=== PATIENT | male | born 1965 | race Caucasian/White ===

== ENCOUNTER 2018-10-01 13:37 | Inpatient (IN) | payer OTHER ==
[~2018-10-01] VITALS: Ht 172.7 cm; Wt 76.5 kg
[2018-10-01] VITALS (10 sets, daily range): BP systolic 97–145; BP diastolic 72–98; BMI 28.3
[2018-10-01] MEDS ORDERED: VENTOLIN HFA18 GM INH (13:54)
[2018-10-01] MEDS ORDERED: LUNESTA2 M1 PO (13:54)
[2018-10-01 16:25] LABS: BASOPHILS 0.4 % (0-2); EOSINOPHILS 0.1 % (0-7); HEMATOCRIT 50.8 % (42.0-54.0); HEMOGLOBIN 16.3 g/dL (13.5-17.5); IMMATURE GRANULOCYTES 0.4 % (0-5); LYMPHOCYTES 23.9 % (15-50); MCHC 32.1 g/dL (31.0-37.0); MCV 93.4 fL (80.0-100.0); MEAN PLATELET VOLUME 9.9 fL (7.4-10.4); MONOCYTES 15.9 % (2-11); NEUTROPHILS 59.3 % (40-80); PLATELET COUNT 230 10x3/uL (130-400); RBC 5.44 10x6/uL (4.20-6.10); RDW 13.6 % (11.5-14.5); WBC 7.4 10x3/uL (4.8-10.8)
[2018-10-01 16:39] LABS: ALBUMIN 3.4 g/dL (3.4-5.0); ALKALINE PHOSPHATASE 72 U/L (46-116); ALT (SGPT) 26 U/L (10-68); BILIRUBIN - TOTAL 0.33 mg/dL (0.2-1.3); CALC OSMOLALITY 274 mosm/kg (275-300); CALCIUM 9.1 mg/dL (8.5-10.1); CARBON DIOXIDE 36.4 mmol/L (21.0-32.0); CHLORIDE - SERUM 96 mmol/L (98-107); CREATININE - SERUM 0.9 mg/dL (0.6-1.3); GLUCOSE 88 mg/dL (74-106); POTASSIUM - SERUM 3.7 mmol/L (3.5-5.1); PROTEIN - SERUM 8.1 g/dL (6.4-8.2); SODIUM 139 mmol/L (136-145); UREA NITROGEN 7 mg/dL (7-18); eGFR NON AFRICAN AMERICAN > 90 mL/min (90-120)
[2018-10-02 04:15] VITALS: BP 138/79
[2018-10-02 06:58] LABS: CALCIUM 9.1 mg/dL (8.5-10.1); CARBON DIOXIDE 33.9 mmol/L (21.0-32.0); CHLORIDE - SERUM 98 mmol/L (98-107); SODIUM 141 mmol/L (136-145); eGFR NON AFRICAN AMERICAN 83 mL/min (90-120)
[2018-10-02 07:00] LABS: CALC OSMOLALITY 282 mosm/kg (275-300); GLUCOSE 150 mg/dL (74-106); UREA NITROGEN 11 mg/dL (7-18)
[2018-10-02 07:03] LABS: BASOPHILS 0.4 % (0-2); EOSINOPHILS 0 % (0-7); HEMATOCRIT 50.9 % (42.0-54.0); IMMATURE GRANULOCYTES 0.4 % (0-5); LYMPHOCYTES 27.7 % (15-50); MCH 29.9 pg (26.0-34.0); MCHC 31.4 g/dL (31.0-37.0); MONOCYTES 7.4 % (2-11); NEUTROPHILS 64.1 % (40-80); RBC 5.36 10x6/uL (4.20-6.10); RDW 13.6 % (11.5-14.5)
[2018-10-02 07:22] LABS: PLATELET COUNT 278 10x3/uL (130-400); WBC 2.8 10x3/uL (4.8-10.8)
[2018-10-02 08:11] VITALS: BP 127/82
[2018-10-02 12:00] VITALS: BP 130/90
[2018-10-02 16:00] VITALS: BP 122/87
[2018-10-02 21:47] VITALS: BP 136/79
[2018-10-03 06:48] VITALS: BP 119/74
[2018-10-03 07:08] LABS: BASOPHILS 0 % (0-2); EOSINOPHILS 0 % (0-7); HEMATOCRIT 44.2 % (42.0-54.0); HEMOGLOBIN 13.8 g/dL (13.5-17.5); IMMATURE GRANULOCYTES 0.4 % (0-5); LYMPHOCYTES 10.5 % (15-50); MCH 29.4 pg (26.0-34.0); MCHC 31.2 g/dL (31.0-37.0); MEAN PLATELET VOLUME 9.8 fL (7.4-10.4); MONOCYTES 4.9 % (2-11); NEUTROPHILS 84.2 % (40-80); PLATELET COUNT 266 10x3/uL (130-400); RDW 13.5 % (11.5-14.5)
[2018-10-03 07:09] LABS: WBC 5.7 10x3/uL (4.8-10.8)
[2018-10-03 07:27] LABS: ALBUMIN 2.8 g/dL (3.4-5.0); ALKALINE PHOSPHATASE 53 U/L (46-116); ALT (SGPT) 28 U/L (10-68); BILIRUBIN - TOTAL 0.21 mg/dL (0.2-1.3); CALC OSMOLALITY 278 mosm/kg (275-300); CALCIUM 8.8 mg/dL (8.5-10.1); CARBON DIOXIDE 35.3 mmol/L (21.0-32.0); CHLORIDE - SERUM 98 mmol/L (98-107); CREATININE - SERUM 0.9 mg/dL (0.6-1.3); GLUCOSE 141 mg/dL (74-106); POTASSIUM - SERUM 3.6 mmol/L (3.5-5.1); SODIUM 139 mmol/L (136-145); UREA NITROGEN 11 mg/dL (7-18); eGFR NON AFRICAN AMERICAN > 90 mL/min (90-120)
[2018-10-03 08:14] VITALS: BP 144/73
[2018-10-03 11:28] VITALS: BP 121/57
[2018-10-03 15:31] VITALS: BP 151/77
[2018-10-03 21:34] VITALS: BP 132/69
[2018-10-04 03:48] VITALS: BP 110/74
[2018-10-04 06:27] VITALS: BP 126/79
[2018-10-04 07:07] LABS: BASOPHILS 0 % (0-2); EOSINOPHILS 0 % (0-7); HEMATOCRIT 41.7 % (42.0-54.0); HEMOGLOBIN 13.2 g/dL (13.5-17.5); IMMATURE GRANULOCYTES 0.7 % (0-5); MCH 29.4 pg (26.0-34.0); MCHC 31.7 g/dL (31.0-37.0); MCV 92.9 fL (80.0-100.0); MEAN PLATELET VOLUME 9.6 fL (7.4-10.4); MONOCYTES 6.4 % (2-11); NEUTROPHILS 82.9 % (40-80); PLATELET COUNT 265 10x3/uL (130-400); RBC 4.49 10x6/uL (4.20-6.10); RDW 13.7 % (11.5-14.5)
[2018-10-04 07:09] LABS: WBC 7.4 10x3/uL (4.8-10.8)
[2018-10-04 07:22] LABS: ALBUMIN 2.7 g/dL (3.4-5.0); ALKALINE PHOSPHATASE 44 U/L (46-116); BILIRUBIN - TOTAL 0.21 mg/dL (0.2-1.3); CALC OSMOLALITY 280 mosm/kg (275-300); CALCIUM 8.9 mg/dL (8.5-10.1); CARBON DIOXIDE 35.1 mmol/L (21.0-32.0); CHLORIDE - SERUM 99 mmol/L (98-107); CREATININE - SERUM 0.9 mg/dL (0.6-1.3); GLUCOSE 131 mg/dL (74-106); PROTEIN - SERUM 6.4 g/dL (6.4-8.2); SODIUM 140 mmol/L (136-145); UREA NITROGEN 13 mg/dL (7-18); eGFR NON AFRICAN AMERICAN > 90 mL/min (90-120)
[2018-10-04 07:23] LABS: ALT (SGPT) 53 U/L (10-68)
[2018-10-04 07:38] VITALS: BP 130/74
[2018-10-04 11:23] VITALS: BP 126/73
[2018-10-04 15:30] VITALS: BP 113/80
[2018-10-04 20:00] VITALS: BP 111/82
[2018-10-05] VITALS: BP 129/81
[2018-10-05 04:00] VITALS: BP 119/86
[2018-10-05 05:30] LABS: BASOPHILS 0 % (0-2); EOSINOPHILS 0 % (0-7); HEMATOCRIT 45.4 % (42.0-54.0); HEMOGLOBIN 14.4 g/dL (13.5-17.5); IMMATURE GRANULOCYTES 0.7 % (0-5); LYMPHOCYTES 10.1 % (15-50); MCH 29.3 pg (26.0-34.0); MCHC 31.7 g/dL (31.0-37.0); MCV 92.3 fL (80.0-100.0); MEAN PLATELET VOLUME 9.7 fL (7.4-10.4); NEUTROPHILS 84.2 % (40-80); PLATELET COUNT 295 10x3/uL (130-400); RBC 4.92 10x6/uL (4.20-6.10); RDW 13.8 % (11.5-14.5); WBC 6.7 10x3/uL (4.8-10.8)
[2018-10-05 05:55] LABS: ALBUMIN 3.1 g/dL (3.4-5.0); ALKALINE PHOSPHATASE 49 U/L (46-116); BILIRUBIN - TOTAL 0.31 mg/dL (0.2-1.3); CALC OSMOLALITY 278 mosm/kg (275-300); CALCIUM 9.1 mg/dL (8.5-10.1); CARBON DIOXIDE 33.2 mmol/L (21.0-32.0); CHLORIDE - SERUM 98 mmol/L (98-107); CREATININE - SERUM 0.9 mg/dL (0.6-1.3); GLUCOSE 155 mg/dL (74-106); POTASSIUM - SERUM 3.9 mmol/L (3.5-5.1); PROTEIN - SERUM 7.1 g/dL (6.4-8.2); SODIUM 138 mmol/L (136-145); UREA NITROGEN 13 mg/dL (7-18); eGFR NON AFRICAN AMERICAN > 90 mL/min (90-120)
[2018-10-05 06:06] LABS: ALT (SGPT) 84 U/L (10-68)
[2018-10-05 08:13] VITALS: BP 125/83
--- NOTE | 2018-10-05 12:04 | MORECARE ---
CASE MANAGEMENT DISCHARGE SUMMARY PATIENT: ALBIN PERDUE UNIT: [id number] ADM DATE: 10/01/18 AGE: 53 : 65 SEX: M ROOM/BED: D.1211 AUTHOR: KRISTINA ASHER PHYSICIAN: REFERRING PHYSICIAN: ALBIN TIAN MD DATE OF SERVICE: 10/05/18 Discharge Plan Patient Name: ALBIN PERDUE [facility] [facility] 1965 Planned Disposition: Home Anticipated Discharge Date: 10/06/18 Discharge Date: Expected LOS: 5 Initial Reviewer: [email or web address] Initial Review Date: 10/01/2018 Generated: 10/05/18 1:04 pm DCPIA - Discharge Planning Initial Assessment Updated by [email or web address]: Amelie Nguyen on 10/05/18 12:01 pm * Is the patient Alert and Oriented? Yes * PCP [facility] IN [place] * Pharmacy [facility] * Preadmission Environment Home Alone * ADLs Independent * Equipment None * List name and contact numbers for known caregivers / representatives who currently or will assist patient after discharge: KRISTA SEALS, , * Community resources currently utilized None * Additional services required to return to the preadmission environment? Yes * Can the patient safely return to the preadmission environment? Yes * Has this patient been hospitalized within the prior 30 days at any hospital? No Patient Name: ALBIN PERDUE Page 24525 at 1204 All edits/amendments must be made on the electronic document DICTATION DATE: 10/05/18 1203 STENOGRAPHER SECRETARY: VINCE 10/05/18 1203 RPT#: [id number] DC DATE: STATUS: ADM IN [facility] [address] [place] [address] END OF REPORT
[2018-10-05 12:16] VITALS: BP 118/85
--- NOTE | 2018-10-05 12:18 | MORECARE ---
CASE MANAGEMENT DISCHARGE SUMMARY PATIENT: ALBIN PERDUE UNIT: [id number] ADM DATE: 10/01/18 AGE: 53 : 65 SEX: M ROOM/BED: D.1211 AUTHOR: LB,DOC PHYSICIAN: REFERRING PHYSICIAN: ALBIN TIAN MD DATE OF SERVICE: 10/05/18 Discharge Plan Patient Name: ALBIN PERDUE Facility: [facility]:[place] : 1965 Planned Disposition: Home Anticipated Discharge Date: 10/06/18 Discharge Date: Expected LOS: 5 Initial Reviewer: [email or web address] Initial Review Date: 10/01/2018 Generated: 10/05/18 1:18 pm Comments DCP- Discharge Planning Updated by [email or web address]: Amelie Nguyen on 10/05/18 11:[address] Patient Name: ALBIN PERDUE Admission Status: ER Accout number: [id number] Admission Date: 10-01-2018 : 1965 Admission Diagnosis:PNEUMONIA, UNSPECIFIED ORGANISM Attending: ALBIN TIAN Current LOS: 4 Anticipated DC Date: 10-06-2018 Planned Disposition: Home Primary Insurance: [employer] LIMITED BENEFITS Discharge Planning Comments: CM MET WITH PATIENT ABOUT DC PLANNING/NEEDS. PLANS TO DC HOME TOMORROW WITH NEBULIZERS. CM SPOKE WITH DR. MAYEN ABOUT NEBULIZERS AND HE STATED YES HE WILL DC PATIENT TO HOME WITH NEBS. CM CALLED [facility] AT [phone] AND FAXED CURRENT DOCUMENTS FOR NEBS TO [phone]. [facility] AT [facility] AWARE PATIENT TO BE DC'D TOMORROW. CM OR NURSE WILL NEED TO FAX DC ORDERS TO [facility] AT TIME OF DC IN ORDER FOR PATIENT TO GET NEBULIZER. CM TO FOLLOW AND ASSIST NEEDED WITH DC PLANNING/NEEDS. Supervisor [employer]: Amelie Nguyen DCPIA - Discharge Planning Initial Assessment Updated by [email or web address]: Amelie Nguyen on 10/05/18 12:01 pm * Is the patient Alert and Oriented? Yes * PCP [facility] IN [place] * Pharmacy [facility] * Preadmission Environment Home Alone * ADLs Independent * Equipment None * List name and contact numbers for known caregivers / representatives who currently or will assist patient after discharge: KRISTA SEALS SI, * Community resources currently utilized None * Additional services required to return to the preadmission environment? Yes * Can the patient safely return to the preadmission environment? Yes * Has this patient been hospitalized within the prior 30 days at any hospital? No Last DP export: 10/05/18 11:04 Patient Name: ALBIN PERDUE Page 00664 at 1218 All edits/amendments must be made on the electronic document DICTATION DATE: 10/05/181217 GIFT CONSULTANT: VINCE 10/05/181217 RPT#: [id number] DC DATE: STATUS: ADM IN [facility] [address] [place] [address] END OF REPORT
--- NOTE | 2018-10-05 12:32 | MORECARE ---
CASE MANAGEMENT DISCHARGE SUMMARY PATIENT: ALBIN PERDUE UNIT: [id number] ADM DATE: 10/01/18 AGE: 53 : 65 SEX: M ROOM/BED: D.1211 AUTHOR: LB,DOC PHYSICIAN: REFERRING PHYSICIAN: ALBIN TIAN MD DATE OF SERVICE: 10/05/18 Discharge Plan Patient Name: ALBIN PERDUE Facility: [facility]:[place] : 1965 Planned Disposition: Home Anticipated Discharge Date: 10/06/18 Discharge Date: Expected LOS: 5 Initial Reviewer: [email or web address] Initial Review Date: 10/01/2018 Generated: 10/05/18 1:32 pm Comments DCP- Discharge Planning Updated by [email or web address]: Amelie Nguyen on 10/05/18 11:[address] Patient Name: ALBIN PERDUE Admission Status: ER Accout number: [id number] Admission Date: 10-01-2018 : 1965 Admission Diagnosis:PNEUMONIA, UNSPECIFIED ORGANISM Attending: ALBIN TIAN Current LOS: 4 Anticipated DC Date: 10-06-2018 Planned Disposition: Home Primary Insurance: [employer] LIMITED BENEFITS Discharge Planning Comments: CM MET WITH PATIENT ABOUT DC PLANNING/NEEDS. PLANS TO DC HOME TOMORROW WITH NEBULIZERS. CM SPOKE WITH DR. MAYEN ABOUT NEBULIZERS AND HE STATED YES HE WILL DC PATIENT TO HOME WITH NEBS. CM CALLED [facility] AT [phone] AND FAXED CURRENT DOCUMENTS FOR NEBS TO [phone]. [facility] AT [facility] AWARE PATIENT TO BE DC'D TOMORROW. CM OR NURSE WILL NEED TO FAX DC ORDERS TO [facility] AT TIME OF DC IN ORDER FOR PATIENT TO GET NEBULIZER. CM TO FOLLOW AND ASSIST NEEDED WITH DC PLANNING/NEEDS. Heart Surgeon: Amelie Nguyen DCPIA - Discharge Planning Initial Assessment Updated by [email or web address]: Amelie Nguyen on 10/05/18 12:01 pm * Is the patient Alert and Oriented? Yes * PCP [facility] [place] * Pharmacy [facility] * Preadmission Environment Home Alone * ADLs Independent * Equipment None * List name and contact numbers for known caregivers / representatives who currently or will assist patient after discharge: KRISTA SEALS SI, * Community resources currently utilized None * Additional services required to return to the preadmission environment? Yes * Can the patient safely return to the preadmission environment? Yes * Has this patient been hospitalized within the prior 30 days at any hospital? No External Providers [facility] Next Contact Date: Service Request Date: Service Type: Resolution: Reviewer: Comments: Last DP export: 10/05/18 11:18 Patient Name: ALBIN PERDUE Page 89348 at 1232 All edits/amendments must be made on the electronic document DICTATION DATE: 10/05/18 1232 WATER QUALITY TESTER: VINCE 10/05/18 1232 RPT#: [id number] DC DATE: STATUS: ADM IN [facility] [address] [place] [address] END OF REPORT
[2018-10-05 16:18] VITALS: BP 126/84
[2018-10-05 20:00] VITALS: BP 135/75
[2018-10-06] VITALS: BP 130/77
[2018-10-06 04:00] VITALS: BP 139/87
[2018-10-06 06:14] LABS: BASOPHILS 0.1 % (0-2); EOSINOPHILS 0 % (0-7); HEMATOCRIT 46.7 % (42.0-54.0); HEMOGLOBIN 15.2 g/dL (13.5-17.5); IMMATURE GRANULOCYTES 0.9 % (0-5); LYMPHOCYTES 8.6 % (15-50); MCH 29.5 pg (26.0-34.0); MCHC 32.5 g/dL (31.0-37.0); MCV 90.5 fL (80.0-100.0); MONOCYTES 8.1 % (2-11); NEUTROPHILS 82.3 % (40-80); PLATELET COUNT 312 10x3/uL (130-400); RBC 5.16 10x6/uL (4.20-6.10); RDW 13.6 % (11.5-14.5)
[2018-10-06 06:18] LABS: WBC 8.9 10x3/uL (4.8-10.8)
[2018-10-06 06:32] LABS: ALBUMIN 3.1 g/dL (3.4-5.0); ALKALINE PHOSPHATASE 50 U/L (46-116); ALT (SGPT) 71 U/L (10-68); BILIRUBIN - TOTAL 0.54 mg/dL (0.2-1.3); CALC OSMOLALITY 280 mosm/kg (275-300); CALCIUM 9.1 mg/dL (8.5-10.1); CARBON DIOXIDE 32.5 mmol/L (21.0-32.0); CHLORIDE - SERUM 99 mmol/L (98-107); CREATININE - SERUM 0.8 mg/dL (0.6-1.3); GLUCOSE 125 mg/dL (74-106); POTASSIUM - SERUM 4.1 mmol/L (3.5-5.1); PROTEIN - SERUM 7.2 g/dL (6.4-8.2); SODIUM 140 mmol/L (136-145); UREA NITROGEN 14 mg/dL (7-18); eGFR NON AFRICAN AMERICAN > 90 mL/min (90-120)
[2018-10-06 09:17] VITALS: BP 131/87
[2018-10-06 10:00] VITALS: Ht 172.7 cm; Wt 76.5 kg
[2018-10-06] MEDS ORDERED: ZITHROMAX250 MG PO (11:46)
[2018-10-06] MEDS ORDERED: ATROVENT 0.02%2.5 ML UPD (11:46)
[2018-10-06] MEDS ORDERED: BROVANA15 MCG/2 M INH (11:46)
[2018-10-06] MEDS ORDERED: OMNICEF300 MG PO (11:46)
[2018-10-06] MEDS ORDERED: SINGULAIR10 MG PO (11:47)
[2018-10-06] MEDS ORDERED: BENZONATATE200 MG PO (11:47)
[2018-10-06] MEDS ORDERED: XOPENEX 0.0.63 MG/3 INH (11:47)
[2018-10-06] MEDS ORDERED: PULMICORT0.5 MG/21 UPD (11:47)
[2018-10-06] MEDS ORDERED: MUCINEX DM ER1 EAC1 PO (11:47)
[2018-10-06] MEDS ORDERED: PREDNISONE20 MG PO (11:48)
[2018-10-06] MEDS ORDERED: DALIRESP500 MCG PO (11:48)
[2018-10-06] MEDS ORDERED: PROTONIX40 MG PO (11:48)
[2018-10-06 12:00] VITALS: BP 118/68
--- NOTE | 2018-10-06 12:42 | MORECARE ---
CASE MANAGEMENT DISCHARGE SUMMARY PATIENT: ALBIN PERDUE UNIT: [id number] ADM DATE: 10/01/18 AGE: 53 : 65 SEX: M ROOM/BED: D.1211 AUTHOR: LB,DOC PHYSICIAN: REFERRING PHYSICIAN: ALBIN TIAN MD DATE OF SERVICE: 10/06/18 Discharge Plan Patient Name: ALBIN PERDUE Facility: [facility]:[place] : 1965 Planned Disposition: Home Anticipated Discharge Date: 10/06/18 Discharge Date: Expected LOS: 5 Initial Reviewer: [email or web address] Initial Review Date: 10/01/2018 Generated: 10/06/18 1:41 pm Comments DCP- Discharge Planning Updated by [email or web address]: [facility] Diggs on 10/06/18 11:[address] CM notified of patient's discharge orders. CM called [facility] to finalize Nebulizer arrangements. CM informed that [facility] does not have any nebulizers in stock as they are on "back order". CM spoke with patient and informed him CM unable to obtain Nebulizer from [facility] and requested patient choose another DME. Patient stated he did not have a preference. CM called [facility]. Spoke with Anh and informed her of orders for Nebulizer. Faxed records as requested. [facility] will deliver Nebulizer to patient's home today. CM informed patient and nurse of discharge plans with Nebulizer. DCP- Discharge Planning Updated by [email or web address]: Amelie Nguyen on 10/05/18 11:[address] Patient Name: ALBIN PERDUE Admission Status: ER Accout number: [id number] Admission Date: 10-01-2018 : 1965 Admission Diagnosis:PNEUMONIA, UNSPECIFIED ORGANISM Attending: ALBIN TIAN Current LOS: 4 Anticipated DC Date: 10-06-2018 Planned Disposition: Home Primary Insurance: [employer] LIMITED BENEFITS Discharge Planning Comments: CM MET WITH PATIENT ABOUT DC PLANNING/NEEDS. PLANS TO DC HOME TOMORROW WITH NEBULIZERS. CM SPOKE WITH DR. MAYEN ABOUT NEBULIZERS AND HE STATED YES HE WILL DC PATIENT TO HOME WITH NEBS. CM CALLED [facility] AT [phone] AND FAXED CURRENT DOCUMENTS FOR NEBS TO [phone]. [facility] AWARE PATIENT TO BE DC'D TOMORROW. CM OR NURSE WILL NEED TO FAX DC ORDERS TO [facility] AT TIME OF DC IN ORDER FOR PATIENT TO GET NEBULIZER. CM TO FOLLOW AND ASSIST NEEDED WITH DC PLANNING/NEEDS. Behavioral Health Director: Amelie Nguyen DCPIA - Discharge Planning Initial Assessment Updated by [email or web address]: Amelie Nguyen on 10/05/18 12:01 pm * Is the patient Alert and Oriented? Yes * PCP [facility] [place] * [facility] * Preadmission Environment Home Alone * ADLs Independent * Equipment None * List name and contact numbers for known caregivers / representatives who currently or will assist patient after discharge: [facility], * Community resources currently utilized None * Additional services required to return to the preadmission environment? Yes * Can the patient safely return to the preadmission environment? Yes * Has this patient been hospitalized within the prior 30 days at any hospital? No External Providers External Provider: [facility] Next Contact Date: Service Request Date: Service Type: Resolution: Reviewer: Comments: Last DP export: 10/05/18 11:32 Patient Name: ALBIN PERDUE Page 86279 at 1242 All edits/amendments must be made on the electronic document DICTATION DATE: 10/06/18 1241 PREVENTION COORDINATOR: VINCE 10/06/18 1241 RPT#: [id number] DC DATE: STATUS: ADM IN [facility] [address] [place] [address] END OF REPORT
--- NOTE | 2018-10-06 15:58 | MORECARE ---
CASE MANAGEMENT DISCHARGE SUMMARY PATIENT: ALBIN PERDUE UNIT: [id number] ADM DATE: 10/01/18 AGE: 53 : 65 SEX: M ROOM/BED: D.1211 AUTHOR: LB,DOC PHYSICIAN: REFERRING PHYSICIAN: ALBIN TIAN MD DATE OF SERVICE: 10/06/18 Discharge Plan Patient Name: ALBIN PERDUE Facility: [facility]:[place] : 1965 Planned Disposition: Home Anticipated Discharge Date: 10/06/18 Discharge Date: 10/06/2018 Expected LOS: 5 Initial Reviewer: [id number] Initial Review Date: 10/01/2018 Generated: 10/06/18 4:58 pm Comments DCP- Discharge Planning Updated by [email or web address]: Shannon Diggs on 10/06/18 11:[address] CM notified of patient's discharge orders. CM called [facility] to finalize Nebulizer arrangements. CM informed that [facility] does not have any nebulizers in stock as they are on "back order". CM spoke with patient and informed him CM unable to obtain Nebulizer from [facility] and requested patient choose another DME. Patient stated he did not have a preference. CM called [facility]. Spoke with Anh and informed her of orders for Nebulizer. Faxed records as requested. [facility] will deliver Nebulizer to patient's home today. CM informed patient and nurse of discharge plans with Nebulizer. DCP- Discharge Planning Updated by [email or web address]: Amelie Nguyen on 10/05/18 11:[address] Patient Name: ALBIN PERDUE Admission Status: ER Accout number: [id number] Admission Date: 10-01-2018 : 1965 Admission Diagnosis:PNEUMONIA, UNSPECIFIED ORGANISM Attending: ALBIN TIAN Current LOS: 4 Anticipated DC Date: 10-06-2018 Planned Disposition: Home Primary Insurance: [employer] LIMITED BENEFITS Discharge Planning Comments: CM MET WITH PATIENT ABOUT DC PLANNING/NEEDS. PLANS TO DC HOME TOMORROW WITH NEBULIZERS. CM SPOKE WITH DR. MAYEN ABOUT NEBULIZERS AND HE STATED YES HE WILL DC PATIENT TO HOME WITH NEBS. CM CALLED [facility] AT [phone] AND FAXED CURRENT DOCUMENTS FOR NEBS TO [phone]. [facility] AT [facility] AWARE PATIENT TO BE DC'D TOMORROW. CM OR NURSE WILL NEED TO FAX DC ORDERS TO [facility] AT TIME OF DC IN ORDER FOR PATIENT TO GET NEBULIZER. CM TO FOLLOW AND ASSIST NEEDED WITH DC PLANNING/NEEDS. Infusion Pharmacist: Ameliehernan Nguyen DCPIA - Discharge Planning Initial Assessment Updated by [email or web address]: Amelie Nguyen on 10/05/18 12:01 pm * Is the patient Alert and Oriented? Yes * PCP [facility] [place] * [facility] * Preadmission Environment Home Alone * ADLs Independent * Equipment None * List name and contact numbers for known caregivers / representatives who currently or will assist patient after discharge: [facility] [employer] [facility], * Community resources currently utilized None * Additional services required to return to the preadmission environment? Yes * Can the patient safely return to the preadmission environment? Yes * Has this patient been hospitalized within the prior 30 days at any hospital? No Last DP export: 10/06/18 11:42 Patient Name: ALBIN PERDUE Page [phone] at 1558 All edits/amendments must be made on the electronic document DICTATION DATE: 10/06/181556 STRUCTURAL TEST ENGINEER: VINCE 10/06/181556 RPT#: [id number] DC DATE:10/06/18 STATUS: DIS IN [facility] [address] [place] [address] END OF REPORT
--- NOTE | 2018-10-13 15:07 | CN ---
PATIENT NAME:ALBIN MANZO MEDICAL RECORD: [id number] : [birth year] LOCATION:[facility].1211 ADMIT DATE: 10/01/18 ACCOUNT: [id number] CONSULTING PHYSICIAN: MAXWELL RAMOS MD REFERRING PHYSICIAN: ALBIN TIAN MD DATE OF CONSULTATION: 10/02/2018 CONSULT REQUESTING PHYSICIAN: Alex Monzon MD REASON FOR CONSULTATION: Shortness of breath. HISTORY OF PRESENT ILLNESS: Mr. Manzo is a 53-year-old gentleman who has a history of asthma. According to the patient for the last few weeks, he has worsening shortness of breath with mild exertion. He hardly walk from the parking lot to his workplace. For the last couple of days, he has upper respiratory tract infection, which goes down to his chest. Now, he is coughing. He is wheezing. He has shortness of breath. The patient came in, he was seen in the first care clinic and then readmitted to the hospital. REVIEW OF SYSTEMS: As in history of present illness. PAST MEDICAL HISTORY: 1. Asthma. 2. Anxiety, depression. PAST SURGICAL HISTORY: He has a spine injection. ALLERGIES: There are no known drug allergies. MEDICATIONS: On Serious [place] is reviewed. PERSONAL AND SOCIAL HISTORY: The patient current everyday smoker. He is a nondrinker. FAMILY HISTORY: Noncontributory. PHYSICAL EXAMINATION: GENERAL: The patient is now lying comfortably in bed. He is not in acute distress. VITAL SIGNS: The blood pressure is 127/82, pulse is 104, respiration is 19, temperature 97.7, SpO2 92% to 96% on 3 liters nasal cannula. HEENT: Conjunctivae are pink. Sclerae are not icteric. NECK: Supple, no JVD. CHEST: There is prolonged expiration with wheezing. HEART: Rhythm regular, normal sound, no murmur. ABDOMEN: Soft, bowel sounds present. No hepatosplenomegaly. RECTAL: Deferred. EXTREMITIES: No cyanosis, no clubbing, no pedal edema. CENTRAL NERVOUS SYSTEM: The patient is awake and alert. There is no obvious cranial nerve abnormality. The gait was not tested. CHEST RADIOGRAPH: There is no acute infiltrate. OTHER LABORATORY DATA: CBC: The WBC is 2.9, hemoglobin 16, hematocrit 50.9, the platelet count is 278. Chemistry: Sodium 141, potassium is 4, bicarbonate CONSULT REPORT [id number] ALBIN MANZO is 33.9, the BUN is 11, creatinine is 1. IMPRESSION: 1. Acute hypoxic respiratory failure with acute exacerbation of COPD. 2. Tracheobronchitis. 3. Asthma. 4. Wheezing. 5. Dyspnea. 6. Tobacco dependence syndrome. RECOMMENDATION: 1. Start him on albuterol/ipratropium nebulizer. 2. Brovana/budesonide nebulizer. 3. Singulair 10 mg b.i.d. 4. Methylprednisolone IV. 5. Follow up labs and chest radiograph. 6. Check alpha-1 level. 7. The patient was counseled to quit smoking. The patient will need outpatient workup for COPD. Dr. Monzon, thank you for involving me in the care of Mr. Manzo. TRANSINT:[id number] Voice Confirmation ID: [id number] DOCUMENT ID: [id number] MAXWELL RAMOS MD at 1507 CC: [id number] DICTATION DATE: 10/02/18 1435 HOME HEALTH CARE PHYSICIAN: 10/02/18 2321 DIS IN 10/06/[address] [facility] [address] [place] [address]
== END 2018-10-06 13:00 | disposition home or self-care (01) | DRG 193 ==
LOC: D.ER 13:37 → D.M3 19:09 → D.EDHOLD 19:09 → D.M3 19:13
PROVIDERS: Family Medicine; Family Medicine Adult Medicine; ADMIT Family Medicine
DX: J18.9 Pneumonia, unspecified organism (principal); J96.01 Acute respiratory failure with hypoxia; J44.1 Chronic obstructive pulmonary disease with (acute) exacerbation; F17.213 Nicotine dependence, cigarettes, with withdrawal; J40 Bronchitis, not specified as acute or chronic; E86.0 Dehydration; R00.0 Tachycardia, unspecified; I10 Essential (primary) hypertension